=== PATIENT | male | born 1980 | race Caucasian/White ===

== ENCOUNTER 2017-11-04 01:51 | Emergency (ER) | payer OTHER ==
[2017-11-04 03:47] LABS: Basophils % (A) 0 %; Eosinophils # (A) 0.1 k/uL (0-0.7); Eosinophils % (A) 1 %; HCT 46.4 % (39.0-53.0); HGB 15.7 gm/dL (13.0-17.5); Lymphocytes # (A) 1.6 k/uL (1.0-4.8); Lymphocytes % (A) 16 %; MCH 30.9 pg (25.0-35.0); MCHC 33.9 g/dL (31.0-37.0); MCV 91.2 fL (80.0-100.0); Mean Platelet Volume 8.4; Monocytes # (A) 0.6 k/uL (0-1.0); Monocytes % (A) 6 %; Neutrophils # (A) 7.7 k/uL (1.3-7.7); Neutrophils % (A) 76 %; Platelet Count 205 k/uL (150-450); RBC 5.09 m/uL (4.30-5.90); RDW 12.5 % (11.5-15.5); WBC 10.1 k/uL (3.8-10.6)
[2017-11-04 03:53] LABS: Alcohol <10 mg/dL; Anion Gap 13 mmol/L; Blood Urea Nitrogen 16 mg/dL (9-20); Calcium 9.5 mg/dL (8.4-10.2); Carbon Dioxide 22 mmol/L (22-30); Chloride 106 mmol/L (98-107); Glucose 105 mg/dL (74-99); Potassium 3.7 mmol/L (3.5-5.1); Sodium 141 mmol/L (137-145)
[2017-11-04 05:00] LABS: Appearance,Urine Clear (Clear); Bilirubin,Urine Negative (Negative); Blood,Urine Trace (Negative); Color,Urine Yellow; Glucose,Urine (UA) Negative (Negative); Hyaline Casts,Urine 4 /lpf (0-2); Ketones,Urine Negative (Negative); Leukocyte Esterase,Urine Negative (Negative); Mucus,Urine Many /hpf; Nitrite,Urine Negative (Negative); Protein,Urine Trace (Negative); RBC,Urine 9 /hpf (0-5); Squamous Epithelial Cell,Urine <1 /hpf (0-4); WBC,Urine 1 /hpf (0-5)
[2017-11-04 05:07] LABS: Amphetamine Screen,Urine Not Detected (NotDetected); Barbiturate Screen,Urine Not Detected (NotDetected); Benzodiazepines Screen,Urine Not Detected (NotDetected); Cocaine Screen,Urine Not Detected (NotDetected); Methadone Screen, Urine Not Detected (NotDetected); Opiate Screen,Urine Not Detected (NotDetected); Oxycodone Screen, Urine Not Detected (NotDetected); Phencyclidine Screen,Urine Not Detected (NotDetected); Tricyclic Antidepressant,Urine Not Detected (NotDetected); Urn Cannabinoid Scrn Detected (NotDetected)
--- NOTE | 2017-11-04 06:14 | ED ---
Psych HPI - General Source: patient, police Mode of arrival: ambulatory Limitations: altered mental status - History of Present Illness MD Complaint: other -: unknown Associated Psychiatric Symptoms: delusions Quality: constant Improves With: none Worsens With: none <GueroAbbe - Last Filed: 11/04/17 06:14> <Keaton Song - Last Filed: 11/10/17 16:15> - General Chief Complaint: Psychiatric Symptoms Stated Complaint: petition Time Seen by Provider: 11/04/17 02:07 - History of Present Illness Initial Comments: This patient is a 37-year-old man brought to have psychiatric evaluation. Police were reportedly called to his place of residence. He had reportedly barricaded himself and his girlfriend into the bedroom, stating that there were people trying to harm him. Here the patient is not fully forthcoming, he did briefly describe that there were some people trying to get him, but I could not get the patient to further elaborate. (Abbe Jack) - Related Data Allergies Allergy/AdvReac Type Severity Reaction Status Date / Time fluoxetine [From Prozac] Allergy Rash/Hives Verified 11/04/17 02:00 Review of Systems ROS Other: All systems not noted in ROS Statement are negative. Limitations: ROS unobtainable due to patients medical condition Respiratory: Denies: cough, dyspnea Cardiovascular: Denies: chest pain Gastrointestinal: Denies: abdominal pain, vomiting Musculoskeletal: Denies: back pain Neurological: Denies: headache Psychiatric: Reports: anxiety, other (delusions). Denies: homicidal thoughts, suicidal thoughts <GueroAbbe - Last Filed: 11/04/17 06:14> ROS Other: All systems not noted in ROS Statement are negative. <Keaton Song - Last Filed: 11/10/17 16:15> ROS Statement: Those systems with pertinent positive or pertinent negative responses have been documented in the HPI. Past Medical History Past Medical History: No Reported History History of Any Multi-Drug Resistant Organisms: None Reported Past Surgical History: No Surgical Hx Reported Past Psychological History: Depression Smoking Status: Current every day smoker Past Alcohol Use History: Occasional Past Drug Use History: Marijuana <GueroAbbe - Last Filed: 11/04/17 06:14> General Exam Limitations: no limitations General appearance: alert, in no apparent distress Head exam: Present: atraumatic, normocephalic ENT exam: Present: normal oropharynx Neck exam: Present: full ROM Respiratory exam: Present: normal lung sounds bilaterally. Absent: respiratory distress, wheezes, rales, rhonchi, stridor Cardiovascular Exam: Present: regular rate, normal rhythm, normal heart sounds. Absent: systolic murmur, diastolic murmur, rubs, gallop GI/Abdominal exam: Present: soft. Absent: tenderness, guarding, rebound, mass Extremities exam: Present: normal inspection, normal capillary refill. Absent: pedal edema Back exam: Present: normal inspection Neurological exam: Present: alert, CN II-XII intact, normal gait. Absent: motor sensory deficit Psychiatric exam: Present: other (Patient has disordered thought processes, displaying tangential thought processes. Also expressing delusional, paranoid thought content) Skin exam: Present: warm, dry, intact. Absent: rash <Abbe Jack - Last Filed: 11/04/17 06:14> Vital Signs 11/04/17 11/04/17 11/04/17 01:55 05:30 08:01 Temperature 98.5 F 97.6 F Pulse Rate 103 H 64 Respiratory 18 17 16 Rate Blood Pressure 156/105 124/70 O2 Sat by Pulse 99 99 Oximetry 11/04/17 12:24 Temperature 97.6 F Pulse Rate 57 L Respiratory 18 Rate Blood Pressure 142/75 O2 Sat by Pulse 97 Oximetry Medical Decision Making - Lab Data Result diagrams: 11/04/17 03:29 11/04/17 03:29 <Abbe Jack - Last Filed: 11/04/17 06:14> - Lab Data Result diagrams: 11/04/17 03:29 11/04/17 03:29 <Keaton Song - Last Filed: 11/10/17 16:15> - Lab Data Lab Results 11/04/17 11/04/17 11/04/17 Range/Units 03:29 03:29 04:49 WBC 10.1 (3.8-10.6) k/uL RBC 5.09 (4.30-5.90) m/uL Hgb 15.7 (13.0-17.5) gm/dL Hct 46.4 (39.0-53.0) % MCV 91.2 (80.0-100.0) fL MCH 30.9 (25.0-35.0) pg MCHC 33.9 (31.0-37.0) g/dL RDW 12.5 (11.5-15.5) % Plt Count 205 (150-450) k/uL Neutrophils % 76 % Lymphocytes % 16 % Monocytes % 6 % Eosinophils % 1 % Basophils % 0 % Neutrophils # 7.7 (1.3-7.7) k/uL Lymphocytes # 1.6 (1.0-4.8) k/uL Monocytes # 0.6 (0-1.0) k/uL Eosinophils # 0.1 (0-0.7) k/uL Basophils # 0.0 (0-0.2) k/uL Sodium 141 (137-145) mmol/L Potassium 3.7 (3.5-5.1) mmol/L Chloride 106 (98-107) mmol/L Carbon Dioxide 22 (22-30) mmol/L Anion Gap 13 mmol/L BUN 16 (9-20) mg/dL Creatinine 0.90 (0.66-1.25) mg/dL Est GFR (CKD-EPI)AfAm >90 (>60 ml/min/1.73 sqM) Est GFR (CKD-EPI)NonAf >90 (>60 ml/min/1.73 sqM) Glucose 105 H (74-99) mg/dL Calcium 9.5 (8.4-10.2) mg/dL Urine Color Yellow Urine Appearance Clear (Clear) Urine pH 6.0 (5.0-8.0) Ur Specific [place] 1.020 (1.001-1.035) Urine Protein Trace H (Negative) Urine Glucose (UA) Negative (Negative) Urine Ketones Negative (Negative) Urine Blood Trace H (Negative) Urine Nitrite Negative (Negative) Urine Bilirubin Negative (Negative) Urine Urobilinogen 2.0 (<2.0) mg/dL Ur Leukocyte Esterase Negative (Negative) Urine RBC 9 H (0-5) /hpf Urine WBC 1 (0-5) /hpf Ur Squamous Epith Cells <1 (0-4) /hpf Hyaline Casts 4 H (0-2) /lpf Urine Mucus Many H (None) /hpf Urine Opiates Screen Not Detected (NotDetected) Ur Oxycodone Screen Not Detected (NotDetected) Urine Methadone Screen Not Detected (NotDetected) Ur Propoxyphene Screen Not Detected (NotDetected) Ur Barbiturates Screen Not Detected (NotDetected) U Tricyclic Antidepress Not Detected (NotDetected) Ur Phencyclidine Scrn Not Detected (NotDetected) Ur Amphetamines Screen Not Detected (NotDetected) U Methamphetamines Scrn Not Detected (NotDetected) U Benzodiazepines Scrn Not Detected (NotDetected) Urine Cocaine Screen Not Detected (NotDetected) U Marijuana (THC) Screen Detected H (NotDetected) Serum Alcohol <10 mg/dL Disposition <Abbe Jack - Last Filed: 11/04/17 06:14> <Keaton Song - Last Filed: 11/10/17 16:15> Clinical Impression: Psychosis Disposition: TRANSFER TO PSYCH HOSP/UNIT Referrals: Annabelle Hernandez MD [Primary Care Provider] - 1-2 days
[2017-11-04 08:03] VITALS: TEMP 97.6
[2017-11-04 12:25] VITALS: BP 142/75; PULSE 57; RESP 18
== END 2017-11-04 12:35 ==
LOC: EC 01:51
DX: F29 Unspecified psychosis not due to a substance or known physiological condition (principal); F22 Delusional disorders; F32.9 Major depressive disorder, single episode, unspecified; F17.200 Nicotine dependence, unspecified, uncomplicated; Z79.899 Other long term (current) drug therapy
CPT/HCPCS: 36415; 80048; 80306; 80320; 81001; 82075; 85025; 99285

== ENCOUNTER 2018-04-03 18:03 | Emergency (ER) | payer OTHER ==
--- NOTE | 2018-04-03 19:12 | ED ---
Recheck HPI - General Chief Complaint: Recheck/Abnormal Lab/Rx Stated Complaint: med refill Time Seen by Provider: 04/03/18 18:47 Source: patient, RN notes reviewed, old records reviewed Mode of arrival: ambulatory Limitations: no limitations - History of Present Illness Initial Comments: 37-year-old male present to ED with CC of needing medication refill for some of his psychiatric medications. Patient requests refill on his medications for PTSD and depression. He normally has this filled by PCP, but he missed his appointment. Patient denies suicidal thoughts. Patient has been out of medications for one day. - Related Data Home Medications Medication Instructions Recorded Confirmed Sertraline [Zoloft] 50 mg PO DAILY 11/04/17 11/04/17 Previous Rx's Medication Instructions Recorded Prazosin [Minipress] 2 mg PO DAILY #20 capsule 04/03/18 Sertraline [Zoloft] 50 mg PO DAILY #10 tab 04/03/18 hydrOXYzine PAMOATE 25 mg PO BID #20 capsule 04/03/18 Allergies Allergy/AdvReac Type Severity Reaction Status Date / Time fluoxetine [From Prozac] Allergy Rash/Hives Verified 04/03/18 18:18 Review of Systems ROS Statement: Those systems with pertinent positive or pertinent negative responses have been documented in the HPI. ROS Other: All systems not noted in ROS Statement are negative. Past Medical History Past Medical History: No Reported History History of Any Multi-Drug Resistant Organisms: None Reported Past Surgical History: No Surgical Hx Reported Past Psychological History: Anxiety, Depression, PTSD, Schizophrenia Smoking Status: Current every day smoker Past Alcohol Use History: Occasional Past Drug Use History: Marijuana General Exam - General Exam Comments Initial Comments: 37 year old male, no distress. Limitations: no limitations General appearance: alert Head exam: Present: atraumatic, normocephalic, normal inspection Eye exam: Present: normal appearance, PERRL, EOMI. Absent: scleral icterus, conjunctival injection, periorbital swelling ENT exam: Present: normal exam, mucous membranes moist Respiratory exam: Present: normal lung sounds bilaterally. Absent: respiratory distress, wheezes, rales, rhonchi, stridor Cardiovascular Exam: Present: regular rate, normal rhythm, normal heart sounds. Absent: systolic murmur, diastolic murmur, rubs, gallop, clicks Extremities exam: Present: normal inspection, full ROM, normal capillary refill. Absent: tenderness, pedal edema, joint swelling, calf tenderness Back exam: Present: normal inspection Course Vital Signs 04/03/18 04/03/18 18:18 20:01 Temperature 97.3 F L 98 F Pulse Rate 83 74 Respiratory 20 18 Rate Blood Pressure 142/90 128/84 O2 Sat by Pulse 98 99 Oximetry Medical Decision Making - Medical Decision Making Patient is a 37 year old male with CC of medication refill. Patient did not know the exact medications and dosage of his psych medications, eventually pharmacy staff was able to retrieve his list necessary medications from pharmacy. Patient will be given short prescrition for hydroxyzine, minipress, and zoloft. Discussed further refill from PCP and psych. REturn parameters discussed. Disposition Clinical Impression: Medication refill Disposition: HOME SELF-CARE Condition: Good Instructions: Medicine Refill (ED) Additional Instructions: Patient has follow up with primary care physician. Return to emergency department if any alarming signs or symptoms occur. Prescriptions: hydrOXYzine PAMOATE 25 mg PO BID #20 capsule Prazosin [Minipress] 2 mg PO DAILY #20 capsule Sertraline [Zoloft] 50 mg PO DAILY #10 tab Is patient prescribed a controlled substance at d/c from ED?: No Referrals: Annabelle Hernandez MD [Primary Care Provider] - 1-2 days Time of Disposition: 19:44
[2018-04-03 20:03] VITALS: BP 128/84; PULSE 74; RESP 18; TEMP 98
== END 2018-04-03 20:01 | disposition home or self-care (01) ==
LOC: EC 18:03
DX: Z76.0 Encounter for issue of repeat prescription (principal); F32.9 Major depressive disorder, single episode, unspecified; F41.9 Anxiety disorder, unspecified; F43.10 Post-traumatic stress disorder, unspecified; F17.200 Nicotine dependence, unspecified, uncomplicated; Z79.899 Other long term (current) drug therapy; Z88.8 Allergy status to other drugs, medicaments and biological substances
CPT/HCPCS: 99282

== ENCOUNTER → 2019-01-16 | Outpatient (CLI) | payer OTHER ==
[2019-01-16 15:38] LABS: Basophils # (A) 0.1 k/uL (0-0.2); Basophils % (A) 1 %; Eosinophils # (A) 0.1 k/uL (0-0.7); Eosinophils % (A) 1 %; HCT 48.3 % (39.0-53.0); HGB 16.9 gm/dL (13.0-17.5); Lymphocytes # (A) 1.7 k/uL (1.0-4.8); Lymphocytes % (A) 18 %; MCH 31.4 pg (25.0-35.0); MCV 89.8 fL (80.0-100.0); Mean Platelet Volume 8.1; Monocytes # (A) 0.5 k/uL (0-1.0); Monocytes % (A) 6 %; Neutrophils # (A) 7.2 k/uL (1.3-7.7); Neutrophils % (A) 75 %; Platelet Count 214 k/uL (150-450); RBC 5.37 m/uL (4.30-5.90); RDW 13.1 % (11.5-15.5); WBC 9.7 k/uL (3.8-10.6)
[2019-01-16 23:16] LABS: African American GFR (CKD) 108.6 (60.0-200.0); Albumin 4.9 g/dL (3.80-4.90); Albumin/Globulin Ratio 2.04 (1.60-3.17); Anion Gap 10.8 mmol/L (4.00-12.00); Calcium 9.8 mg/dL (8.7-10.3); Carbon Dioxide 24.2 mmol/L (21.6-31.8); Globulin 2.4 g/dL (1.6-3.3); Potassium 3.9 mmol/L (3.5-5.5); Total Bilirubin 0.6 mg/dL (0.2-1.2); Total Protein 7.3 g/dL (6.2-8.2)
[2019-01-16 23:24] LABS: T4, Free (Free Thyroxine) 1.2 ng/dL (0.80-1.80)
[2019-01-17 04:45] LABS: Hemoglobin A1C 5.4 % (4.0-6.0)
== END | disposition home or self-care (01) ==
LOC: LABWHC1 14:20
PROVIDERS: ATTEND Psychiatry & Neurology Psychiatry
DX: T50.905A Adverse effect of unspecified drugs, medicaments and biological substances, initial encounter (principal)
CPT/HCPCS: 36415; 80053; 83036; 84439; 84443; 85025